=== PATIENT | male | born 1955 | race African-American/Black ===

== ENCOUNTER 2021-06-26 02:58 | Inpatient (IN) | payer OTHER ==
[~2021-06-26] VITALS: Ht 172.7 cm; Wt 74.1 kg
[2021-06-26] VITALS (7 sets, daily range): BP systolic 109–156; BP diastolic 70–108
[2021-06-26 03:25] LABS: ABSOLUTE NEUTROPHILS 2.7 thou/uL (1.4-8.2); BASOPHILS 0.9 % (0.0-2.0); EOSINOPHILS 0.2 % (0.0-3.0); HEMATOCRIT 41.9 % (42.0-52.0); HEMOGLOBIN 14.3 gm/dL (14.0-18.0); LYMPHOCYTES 43.6 % (24.0-44.0); MCH 28.7 pg (26.0-34.0); MCHC 34.1 g/dL (28.0-37.0); MCV 84.3 fL (80.0-100.0); MONOCYTES 5.8 % (1.0-8.0); PLATELET COUNT 173 thou/uL (150-400); POLYS 49.5 % (36.0-66.0); RBC 4.97 mil/uL (4.50-6.00); RDW 12.9 % (10.5-14.5); WBC 5.4 thou/uL (4.0-11.0)
[2021-06-26] MEDS ORDERED: NOHOMEMEDICATIONS (03:25)
[2021-06-26 03:32] LABS: ANION GAP 10 mmol/L (7-16); BUN 14 mg/dL (7-18); CALCIUM 8.2 mg/dL (8.5-10.1); CHLORIDE 94 mmol/L (98-107); CO2 24 mmol/L (21-32); CREATININE 1.1 mg/dL (0.7-1.3); GLUCOSE 131 mg/dL (74-106); SODIUM 128 mmol/L (136-145)
[2021-06-26 03:45] LABS: ALBUMIN 3.1 g/dL (3.4-5.0); DIRECT BILIRUBIN 0.1 mg/dL (<0.1-0.2); SGOT 59 U/L (15-37); SGPT 51 U/L (16-63); TOTAL BILIRUBIN 0.7 mg/dL (0.2-1.0); TOTAL PROTEIN 6.8 g/dL (6.4-8.2); TROPONIN-I <0.06 ng/mL (<0.06)
--- NOTE | 2021-06-26 07:20 | NUR ---
Pt came from ER, on Bipap, alert + oriented x 4, Cardizem gtt infusing at 10mg/hr, pt diuresing after lasix given in ED. Pt denies PMHx or home meds, states he is a current smoker. Admission assesments charted.
--- NOTE | 2021-06-26 07:21 | EKG ---
[facility] [place] [address] ELECTROCARDIOGRAM REPORT Name: GARRY FERRER Room #: 214-P ADM IN M.R.#: [id number] Admission: 06/26/21 Attend Phys: Kaiden Aguilar Discharge: Date of : 53 Report #: [id number] [facility] ED Test Date: 2021-06-26 Test Time: 03:03:06 Pat Name: GARRY FERRER Department: Room: 214 Gender: M Surgeon/President: brando : 1955 Requested By: Caridad Waldrop Order Number: [id number] MD: Emery Wilson Measurements Intervals [place] Rate: 152 P: 0 UT: QRS: -58 QRSD: 94 T: 195 QT: 357 QTc: 568 Interpretive Statements Sinus tachycardia vs. AFL 2:1 block RSR' in V1 or V2, right VCD or RVH Inferior infarct, recent Lateral leads are also involved Prolonged QT interval No previous ECG available for comparison Electronically Signed On 06-26-2021 7:20:51 CDT by Emery Wilson [email or web address] <ELECTRONICALLY SIGNED> By: Emery Wilson MD, [facility] 08/05/11 720 2 2 Emery Wilson MD, [facility] /EPI
[2021-06-26 08:34] LABS: CHOLESTEROL 123 mg/dL (<200); HDL CHOLESTEROL 48 mg/dL (>40); LDL CHOLESTEROL 62 mg/dL (<100); TC:HDL 2.6 Ratio (Not establshd); TRIGLYCERIDE 68 mg/dL (<150); VLDL 14 mg/dL (<40)
[2021-06-26 09:05] LABS: FOLIC ACID 9.4 ng/mL (8.6-58.9)
--- NOTE | 2021-06-26 12:01 | 2DMMODE ---
[facility] [place] [address] 2 D/M-MODE ECHOCARDIOGRAM Name: GARRY FERRER Room #: 214-P ADM IN M.R.#: [id number] Admission: 06/26/21 Attend Phys: Kaiden Aguilar Discharge: Date of : 53 Report #: [id number] THIS REPORT FOR: cc: [facility] - Clinic physician unknown [facility] - Clinic physician unknown Stas Dietz MD [facility] ~ APPROVED REPORT Study performed: 06/26/2021 10:52:03 EXAM: Comprehensive 2D, Doppler, and color-flow Echocardiogram Patient Location: Bedside Room #: 214 Status: routine BSA: 1.85 HR: 75 bpm BP: 130/92 mmHg Rhythm: Atrial Fibrillation Other Information Study Quality: Good Indications Congestive Heart Failure Atrial Fibrillation 2D Dimensions RVDd: 39.17 mm IVSd: 8.02 (7-11mm) LVOT Diam: 19.00 (18-24mm) LVDd: 47.11 mm PWd: 8.88 (7-11mm) Ascending Ao: 32.77 (22-36mm) LVDs: 38.87 (25-40mm) Left Atrium: 36.60 (27-40mm) Aortic Root: 30.54 mm IVC: 20.00 mm Volumes Left Atrial Volume (Systole) Single Plane 4CH: 89.12 mL Single Plane 2CH: 58.05 mL LA ESV Index: 45.00 mL/m2 Aortic Valve AoV Peak Cristopher.: 1.02 m/s AO Peak Gr.: 4.15 mmHg LVOT Max P.79 mmHg LVOT Max V: 0.66 m/s [facility] [address] [place] [address] 2 D/M-MODE ECHOCARDIOGRAM Name: GARRY FERRER Room #: 214-P [facility] IN [facility].#: [id number] Admission: 06/26/21 Attend Phys: Kaiden White Discharge: Date of : 53 Report #: [id number] RONAK Vmax: 1.84 cm2 Pulmonary Valve PV Peak Cristopher.: 0.86 m/s PV Peak Gr.: 2.94 mmHg Tricuspid Valve TR Peak Cristopher.: 2.25 m/s TR Peak Gr.: 20.20 mmHg PA Pressure: 30.00 mmHg Left Ventricle The left ventricle is normal size. There is global hypokinesis of the left ventricle. There is normal left ventricular wall thickness. Left ventricular ejection fraction is severely decreased. LVEF 20-25%. This study is not technically sufficient to allow evaluation of the LV diastolic function due to atrial fibrillation. Right Ventricle The right ventricle is normal size. The right ventricular systolic function is normal. Atria Left atrium is dilated. Right atrium is dilated. Aortic Valve The aortic valve is mildly calcified. No aortic regurgitation is present. There is no aortic valvular stenosis. Mitral Valve The mitral valve is normal in structure. Mild mitral regurgitation. No evidence of mitral valve stenosis. Tricuspid Valve The tricuspid valve is normal in structure. There is mild tricuspid regurgitation. Estimated PAP 30 mmHg. There is no pulmonary hypertension. Pulmonic Valve The pulmonary valve is normal in structure. There is no pulmonic valvular regurgitation. Great Vessels The aortic root is normal in size. IVC is dilated and collapses >50% with inspiration. Pericardium [facility] [address] [place] [address] 2 D/M-MODE ECHOCARDIOGRAM Name: GARRY FERRER Room #: 214-P [facility] IN .R.#: [id number] Admission: 06/26/21 Attend Phys: Kaiden White Discharge: Date of : 53 Report #: [id number] There is no pericardial effusion. Large pleural effusion. <Conclusion> Left ventricular ejection fraction is severely decreased. There is global hypokinesis of the left ventricle. LVEF 20-25%. Both atria are dilated. The aortic valve is mildly calcified. No aortic regurgitation or stenosis. The mitral valve is normal in structure. Mild mitral regurgitation. Large pleural effusion. There is no pericardial effusion. <ELECTRONICALLY SIGNED> By: Stas Dietz MD, [facility] 06/26/21 1200 1200 1200 Stas Dietz MD, FACC /INF
--- NOTE | 2021-06-26 19:16 | NUR ---
RECEIVED THE PATIENT CONSCIOUS AND ORIENTED.WAS ON BIPAP INITIALLY IN THE MORNING TO MANAGE THE SOB BUT SHIFTED TO NASAL CANNULA AT 2LPM BY RT PATIENT'S BREATHING AND SATURATION HAS IMPROVED.HAD CT SCAN, NO EVIDENCE OF PULMONARY EMBOLISM.ALL NEEDS ATTENDED.HANDED OVER TO CLIENT MANAGER FOR FURTHER CARE.
[2021-06-27] VITALS (7 sets, daily range): BP systolic 91–132; BP diastolic 55–99
[2021-06-27 10:36] LABS: CALCIUM 8.4 mg/dL (8.5-10.1); CREATININE 1.4 mg/dL (0.7-1.3); POTASSIUM 3.8 mmol/L (3.5-5.1)
--- NOTE | 2021-06-27 20:50 | NUR ---
HR AT CHANGE OF SHIFT 143. DAY NURSE CALLED AND RECEIVED DIGOXIN ORDER. PT RECEIVED AND HR DOWN TO 98 TO 104. APPROXIMATELY HOUR LATER. PT NOT SYMPTOMATIC AND PT RECEIVED SCHEDULED HS AMIODARONE. HOSPITALIST PROVIDER CONTACTED WHEN HR STILL IN 130'S, REQUESTED CARDIOLOGY BE UPDATED. 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
--- NOTE | 2021-06-27 23:33 | NUR ---
CARDIZEM DRIP STARTED PER CARDIOLOGY SINCE HR WAS REMAINING IN THE 120S. PT TAKING PICTURE OF FAILED IV STARTS, CALLING HIS HOME TO REPORT INTERVENTIONS THAT NURSES ARE COMPLETING. PT PLEASANT BUT DEMANDING AND ANXIOUS ABOUT HR ELEVATION.
[2021-06-28] VITALS (8 sets, daily range): BP systolic 103–123; BP diastolic 58–78
--- NOTE | 2021-06-28 04:17 | NUR ---
HR 66 DECREASED DRIP RATE TO 5.
[2021-06-28 11:11] LABS: CALCIUM 8.4 mg/dL (8.5-10.1); CREATININE 1.5 mg/dL (0.7-1.3); POTASSIUM 4.2 mmol/L (3.5-5.1)
--- NOTE | 2021-06-28 19:02 | NUR ---
PATIENT BELONGINGS: UPPER DENTURES IN PLACE
[2021-06-29 04:51] VITALS: BP 120/73
--- NOTE | 2021-06-29 07:01 | NUR ---
PT WITHOUT ANY COMPLAINTS THRU THE NOC, NPO SINCE MNOC, VSS, HR REMAINS AFLUTTER, CARDIVERSION, WILL CON'T TO MONITOR PER PPOC.
[2021-06-29 07:27] LABS: CALCIUM 8.5 mg/dL (8.5-10.1); CREATININE 1.5 mg/dL (0.7-1.3); POTASSIUM 3.9 mmol/L (3.5-5.1)
[2021-06-29 08:00] VITALS: BP 139/81
--- NOTE | 2021-06-29 09:37 | TEE ---
[facility] [place] [address] TRANSESOPHAGEAL ECHOCARDIOGRAM Name: GARRY FERRER Room #: 214-P ADM IN M.R.#: [id number] Admission: 06/26/21 Attend Phys: Kaiden Aguilar Discharge: Date of : 53 Report #: [id number] THIS REPORT FOR: cc: [facility] - Clinic physician unknown [facility] - [facility] physician unknown Stas Dietz MD [facility] ~ APPROVED REPORT Study performed: 06/29/2021 09:04:38 EXAM: Transesophageal Echocardiogram with Doppler and cardioversion Patient Location: In-Patient Room #: 214 Status: routine BSA: 1.85 HR: 105 bpm BP: 131/81 mmHg Rhythm: Atrial Fibrillation Other Information Study Quality: Excellent Indications Atrial Fibrillation Echo Enhancing Agent Indication: Rule out Shunt Agent(s) / Amount(s) Used: Agitated Saline 7 cc Procedure After obtaining informed consent, patient underwent transesophageal echo in the [facility]. Type of Sedation : Conscious Sedation Sedation was administered by Nurse. Sedation start time: 904 Case end Time: 911 Sedation was achieved intravenously with: Versed (5 mg) Fentanyl (50 mcg) Transesophageal probe was inserted and advanced into esophagus without difficulty by Stas Dietz MD. Echo enhancement indication: R/O Septal defect. Echo enhancement agent administered: Agitated Saline The SLICK was performed without complications. Synchronized Cardioversion acheived with 50 Joules after 1 [facility] [address] [place] [address] TRANSESOPHAGEAL ECHOCARDIOGRAM Name: GARRY FERRER Room #: 214-P ADM IN M.R.#: [id number] Admission: 06/26/21 Attend Phys: Kaiden White Discharge: Date of : 53 Report #: [id number] attempt(s). Rhythm following Synchronized Cardioversion: Normal Sinus Rhythm Throughout the procedure, the blood pressure, pulse oximetry, cardiac rhythm, and rate were monitored. The patient tolerated the procedure without adverse effects. Recovery from conscious sedation was uneventful and vital signs were stable. Left Ventricle The left ventricle is normal size. There is global hypokinesis of the left ventricle. There is normal left ventricular wall thickness. Left ventricular ejection fraction is severely decreased. LVEF is 20%. Right Ventricle The right ventricle is normal size. The right ventricular systolic function is normal. Atria Left atrium is dilated. No thrombus is visualized in the left atrium or appendage. No shunting by contrast bubble injection Right atrium is dilated. Aortic Valve The aortic valve is normal in structure. No aortic regurgitation is present. There is no aortic valvular stenosis. Mitral Valve The mitral valve is normal in structure. Mild mitral regurgitation. No evidence of mitral valve stenosis. Tricuspid Valve The tricuspid valve is normal in structure. Mild tricuspid regurgitation. Pulmonic Valve The pulmonary valve is normal in structure. There is no pulmonic valvular regurgitation. Great Vessels The aortic root is normal in size. IVC is normal in size and collapses >50% with inspiration. Pericardium There is no pericardial effusion. [facility] [address] [place] [address] TRANSESOPHAGEAL ECHOCARDIOGRAM Name: GARRY FERRER Room #: 214-P ADM IN M.R.#: [id number] Admission: 06/26/21 Attend Phys: Kaiden White Discharge: Date of : 53 Report #: [id number] <Conclusion> Left ventricular ejection fraction is severely decreased. There is global hypokinesis of the left ventricle. LVEF is 20%. Both atria are mildly dilated. No thrombus is visualized in the left atrium or appendage. No shunting by contrast bubble injection The aortic valve is normal in structure. No aortic regurgitation or stenosis. The mitral valve is normal in structure. Mild mitral regurgitation. There is no pericardial effusion. Successful cardioversion of atrial flutter to sinus rhythm following a single 50 J biphasic synchronous shock <ELECTRONICALLY SIGNED> By: Stas Dietz MD, FACC 06/29/21935 5 5 Stas Dietz MD, FACC /INF
[2021-06-29 15:30] VITALS: BP 127/65
[2021-06-29 20:00] VITALS: BP 101/56
--- NOTE | 2021-06-29 20:19 | NUR ---
RECEIVED THE PATIENT CONSCIOUS AND ORIENTED.ON ROOM AIR BREATHING SPONTANEOUSLY.NOT IN PAIN OR DISTRESS.HAD CARDIOVERSION THIS MORNING, REVERTED TO SINUS RYTHM AFTER THE PROCEDURE.GIVEN MORNING MEDS AFTER THE CARDIOVERSION ADVISED BY THE CARDIOLOGY NURSE PRACTICIONER.ALL NEEDS ATTENDED.
[2021-06-30 00:05] VITALS: BP 111/66
--- NOTE | 2021-06-30 03:51 | NUR ---
PT IS ALERT AND OREINTED X4. ON ROOM AIR LUNG CLEAR TO DIMINISHED. VOIDS PER URINAL. 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 STATES HE NEEDS TO GET HOME AND PAY HIS BILLS. GET OUT OF THE HOSPITAL HE REPORTS , PAY RENT. UP TO CHAIR THIS EVENING. DENIES ANY PAIN ISSUES. ONGOING NURSING CARE. CALL LIGHT WITHIN REACH IF NEEDS ASSSTANCE.
[2021-06-30 04:00] VITALS: BP 120/69
[2021-06-30 07:30] VITALS: BP 129/72
[2021-06-30] MEDS ORDERED: PACERONE 200 M200 M1 PO (08:45)
[2021-06-30] MEDS ORDERED: XARELTO20 MG PO (08:45)
[2021-06-30] MEDS ORDERED: LISINOPRIL5 MG PO (08:45)
[2021-06-30] MEDS ORDERED: TOPROL XL100 MG PO (08:45)
--- NOTE | 2021-06-30 09:04 | NUR ---
unable to speak with patient, placed BPCI letter and preferred network list in patient chart, lives in home setting
[2021-06-30 09:08] VITALS: BP 129/72
--- NOTE | 2021-06-30 09:39 | NUR ---
patient discharge at 0930 in wheelchair with all belongings and occompanied by family and belt turner.
== END 2021-06-30 09:45 | disposition home or self-care (01) | DRG 291 ==
LOC: ER 02:58 → 2N 05:21 → EROBS 05:21 → 2N 06:08
PROVIDERS: Emergency Medicine; Internal Medicine Cardiovascular Disease; Nurse Practitioner; ADMIT Hospitalist; ATTEND Hospitalist
DX: I50.21 Acute systolic (congestive) heart failure (principal); J96.01 Acute respiratory failure with hypoxia; J18.9 Pneumonia, unspecified organism; R65.11 Systemic inflammatory response syndrome (SIRS) of non-infectious origin with acute organ dysfunction; I48.20 Chronic atrial fibrillation, unspecified; I48.92 Unspecified atrial flutter; E87.1 Hypo-osmolality and hyponatremia; J91.8 Pleural effusion in other conditions classified elsewhere; F17.210 Nicotine dependence, cigarettes, uncomplicated; I34.0 Nonrheumatic mitral (valve) insufficiency; Z20.822 Contact with and (suspected) exposure to COVID-19; Z79.01 Long term (current) use of anticoagulants; Z72.89 Other problems related to lifestyle
CPT/HCPCS: 10081

== ENCOUNTER → 2021-07-23 | Outpatient (CLI) | payer OTHER ==
[~2021-07-23] MED LIST: LISINOPRIL5 MG PO; NOHOMEMEDICATIONS; PACERONE 200 M200 M1 PO; TOPROL XL100 MG PO; XARELTO20 MG PO
== END ==
LOC: SJCVCIMAG 09:25
PROVIDERS: ATTEND Internal Medicine Cardiovascular Disease
DX: I49.3 Ventricular premature depolarization (principal); R94.31 Abnormal electrocardiogram [ECG] [EKG]; I48.0 Paroxysmal atrial fibrillation; I48.3 Typical atrial flutter; I42.0 Dilated cardiomyopathy; I11.0 Hypertensive heart disease with heart failure; I50.9 Heart failure, unspecified; I26.99 Other pulmonary embolism without acute cor pulmonale; R51.9 Headache, unspecified; Z79.899 Other long term (current) drug therapy; Z87.891 Personal history of nicotine dependence